=== PATIENT | male | born 1955 | race Caucasian/White ===

== ENCOUNTER → 2017-05-02 | Outpatient (REF) | payer MEDICAID, OTHER ==
[~2017-05-02] MED LIST: ALEVE PO; INTERFERON SQ; NEXI20CA OR; PROZ20CA OR; RIBAVIRIN PO; SYNT50TA OR; TRAMPOW3 XX; TRAZ100T OR
[2017-05-03 14:06] LABS: CALCIUM OXALATE CRYSTALS SMALL
== END ==
LOC: M LAB REF 13:25
PROVIDERS: ATTEND Family Medicine Addiction Medicine
DX: R10.31 Right lower quadrant pain (principal)

== ENCOUNTER → 2017-12-13 | Outpatient (REF) | payer OTHER, MEDICAID ==
[2017-12-13 14:28] LABS: ALBUMIN/GLOBULIN RATIO 1.14 (1.00-1.93); ALKALINE PHOSPHATASE 76 U/L (45-117); ALT/SGPT 20 U/L (12-78); ANION GAP 8 MEQ/L (8-16); AST/SGOT 17 U/L (7-37); BILIRUBIN,TOTAL 0.5 MG/DL (0.2-1.0); BLOOD UREA NITROGEN 19 MG/DL (7-18); CARBON DIOXIDE LEVEL 31 MEQ/L (21-32); CHLORIDE LEVEL 103 MEQ/L (98-107); CHOLESTEROL LEVEL 148 MG/DL (<200); CREATININE FOR GFR 0.96 MG/DL (0.70-1.30); GLOMERULAR FILTRATION RATE > 60.0 (>49); GLUCOSE, FASTING 100 MG/DL (70-100); HDL CHOLESTEROL 54 MG/DL (>40); LDL CHOLESTEROL 74.8 MG/DL (<100); NON-HDL-C 94 MG/DL; POTASSIUM SERUM 3.8 MEQ/L (3.5-5.1); SODIUM LEVEL 142 MEQ/L (136-145); TOTAL PROTEIN 7.5 GM/DL (6.4-8.2); TRIGLYCERIDES LEVEL 96 MG/DL (<150)
== END ==
LOC: M LAB REF 13:34
DX: I10 Essential (primary) hypertension (principal)

== ENCOUNTER → 2019-02-20 | Outpatient (REF) | payer MEDICAID, OTHER, SELFPAY ==
[2019-02-20 14:01] LABS: ALBUMIN 4.1 GM/DL (3.2-5.2); ALT/SGPT 18 U/L (12-78); BLOOD UREA NITROGEN 11 MG/DL (7-18); CALCIUM LEVEL 9.1 MG/DL (8.8-10.2); CARBON DIOXIDE LEVEL 27 MEQ/L (21-32); CHLORIDE LEVEL 104 MEQ/L (98-107); CHOLESTEROL LEVEL 142 MG/DL (<200); CHOLESTEROL RISK RATIO 2.535 (<5); CREATININE FOR GFR 0.94 MG/DL (0.70-1.30); GLOMERULAR FILTRATION RATE > 60.0 (>49); GLUCOSE, FASTING 75 MG/DL (70-100); HDL CHOLESTEROL 56 MG/DL (>40); LDL CHOLESTEROL 76 MG/DL (<100); NON-HDL-C 86 MG/DL; POTASSIUM SERUM 4.3 MEQ/L (3.5-5.1); SODIUM LEVEL 137 MEQ/L (136-145); TRIGLYCERIDES LEVEL 48 MG/DL (<150)
== END ==
LOC: M LAB REF 12:29
PROVIDERS: ATTEND Family Medicine Addiction Medicine
DX: I10 Essential (primary) hypertension (principal)

== ENCOUNTER → 2020-03-04 | Outpatient (REF) | payer OTHER ==
[2020-03-04 14:16] LABS: BASO % 0.5 % (0.0-1.0); EOS # 0.2 10^3/uL (0.0-0.5); EOS % 3.4 % (0.0-3.0); HEMATOCRIT 46.5 % (42.0-52.0); HEMOGLOBIN 15.4 g/dl (13.5-17.5); LYMPH # 1.1 10^3/uL (1.5-5.0); LYMPH % 18.6 % (24.0-44.0); MEAN CORPUSCULAR HEMOGLOBIN 29.8 pg (27.0-33.0); MEAN CORPUSCULAR HGB CONC 33.1 g/dl (32.0-36.5); MEAN CORPUSCULAR VOLUME 90.1 fl (80.0-96.0); MONO # 0.6 10^3/uL (0.0-0.8); MONO % 9.9 % (0.0-5.0); NEUTROPHILS % 67.3 % (36.0-66.0); PLATELET COUNT, AUTOMATED 203 10^3/uL (150-450); RED BLOOD COUNT 5.16 10^6/uL (4.30-6.10); WHITE BLOOD COUNT 5.9 10^3/uL (4.0-10.0)
[2020-03-04 14:33] LABS: ALBUMIN 4.3 GM/DL (3.2-5.2); ALT/SGPT 23 U/L (12-78); BILIRUBIN,TOTAL 0.6 MG/DL (0.2-1.0); BLOOD UREA NITROGEN 21 MG/DL (7-18); CALCIUM LEVEL 9.6 MG/DL (8.8-10.2); CARBON DIOXIDE LEVEL 31 MEQ/L (21-32); CHLORIDE LEVEL 99 MEQ/L (98-107); CHOLESTEROL LEVEL 159 MG/DL (<200); CHOLESTEROL RISK RATIO 2.944 (<5); CREATININE FOR GFR 0.97 MG/DL (0.70-1.30); FREE T4 1.21 NG/DL (0.76-1.46); GLOMERULAR FILTRATION RATE > 60.0 (>49); GLUCOSE, FASTING 97 MG/DL (70-100); HDL CHOLESTEROL 54 MG/DL (>40); LDL CHOLESTEROL 90 MG/DL (<100); NON-HDL-C 105 MG/DL; POTASSIUM SERUM 3.8 MEQ/L (3.5-5.1); SODIUM LEVEL 136 MEQ/L (136-145); TOTAL 25(OH) VITAMIN D 20.1 NG/ML (30.0-100.0); TRIGLYCERIDES LEVEL 73 MG/DL (<150)
[2020-03-04 14:46] LABS: HEMOGLOBIN A1c 5.6 %
== END ==
LOC: M LAB REF 12:27
PROVIDERS: ATTEND Nurse Practitioner Family
DX: M25.511 Pain in right shoulder (principal); G47.09 Other insomnia; I10 Essential (primary) hypertension; F32.9 Major depressive disorder, single episode, unspecified; K21.9 Gastro-esophageal reflux disease without esophagitis; Z13.9 Encounter for screening, unspecified
CPT/HCPCS: 80053; 80061; 82306; 83036; 84439; 84443; 85025; G0103

== ENCOUNTER 2021-12-28 12:16 | Emergency (ER) | payer OTHER ==
[~2021-12-28] VITALS: Ht 182.9 cm; Wt 81.8 kg
[2021-12-28 14:59] VITALS: BP 119/69
== END 2021-12-28 15:08 | disposition home or self-care (01) ==
LOC: M ED 12:16
DX: S82.001A Unspecified fracture of right patella, initial encounter for closed fracture (principal); S46.911A Strain of unspecified muscle, fascia and tendon at shoulder and upper arm level, right arm, initial encounter; W18.39XA Other fall on same level, initial encounter; Y92.018 Other place in single-family (private) house as the place of occurrence of the external cause; I10 Essential (primary) hypertension; Z79.899 Other long term (current) drug therapy

== ENCOUNTER → 2022-01-01 | Outpatient (CLI) | payer MEDICARE ==
[~2022-01-01] MED LIST changes: +CLEO300C2 PO; +GABA-282 PO; +HYDR12CA PO; +IBUP80TA PO; +PANT40TA29 PO; +ZOLP5TAB PO
== END ==
LOC: M SOG 13:13 → MERGE 13:13
PROVIDERS: ATTEND Orthopaedic Surgery
DX: S82.002A Unspecified fracture of left patella, initial encounter for closed fracture (principal); X58.XXXA Exposure to other specified factors, initial encounter; Y92.89 Other specified places as the place of occurrence of the external cause; Y93.89 Activity, other specified; Y99.8 Other external cause status

== ENCOUNTER → 2022-01-14 | Outpatient (CLI) | payer OTHER ==
[~2022-01-14] MED LIST changes: -CLEO300C2 PO; -GABA-282 PO; -HYDR12CA PO; -IBUP80TA PO; -PANT40TA29 PO; -ZOLP5TAB PO
== END ==
LOC: M SOG 14:46
PROVIDERS: ATTEND Physician Assistant
DX: M19.012 Primary osteoarthritis, left shoulder (principal); M85.812 Other specified disorders of bone density and structure, left shoulder

== ENCOUNTER 2022-01-17 09:13 | Observation (INO) | payer MEDICARE ==
[~2022-01-17] VITALS: Ht 182.9 cm; Wt 76.0 kg
[2022-01-17 10:12] LABS: BASO % 0.2 % (0.0-1.0); EOS % 0.1 % (0.0-3.0); HEMATOCRIT 37.3 % (42.0-52.0); HEMOGLOBIN 12.2 g/dl (13.5-17.5); LYMPH # 1.3 10^3/uL (1.5-5.0); LYMPH % 16.7 % (24.0-44.0); MEAN CORPUSCULAR HEMOGLOBIN 27.5 pg (27.0-33.0); MEAN CORPUSCULAR HGB CONC 32.7 g/dl (32.0-36.5); MONO # 0.8 10^3/uL (0.0-0.8); MONO % 10.4 % (2.0-8.0); NEUTROPHILS # 5.8 10^3/uL (1.5-8.5); NEUTROPHILS % 71.9 % (36.0-66.0); PLATELET COUNT, AUTOMATED 180 10^3/uL (150-450); RED BLOOD COUNT 4.44 10^6/uL (4.30-6.10)
[2022-01-17 10:26] LABS: INR 1.03; PROTHROMBIN TIME 13.9 SECONDS (12.7-14.5)
[2022-01-17 10:27] LABS: PARTIAL THROMBOPLASTIN TIME 29.2 SECONDS (25.9-37.0)
[2022-01-17] MEDS ORDERED: HYDROMORPHONE HCL 0.5 MG/ 0.5 ML SYRINGE (J1170 PER 1) IV PRN (10:35)
[2022-01-17 10:42] LABS: MB/CK RELATIVE INDEX 5.66 (< OR =4)
[2022-01-17] MEDS ORDERED: LIDOCAINE W/EPINEPHRINE 1% 20ML VIAL As Ordered ONE (10:42)
[2022-01-17 10:50] LABS: RSV AMPLIFICATION NEGATIVE (NEGATIVE)
[2022-01-17 10:51] LABS: BLOOD UREA NITROGEN 34 MG/DL (7-18); CALCIUM LEVEL 8.8 MG/DL (8.8-10.2); CARBON DIOXIDE LEVEL 29 MEQ/L (21-32); CHLORIDE LEVEL 108 MEQ/L (98-107); CREATININE FOR GFR 1.07 MG/DL (0.70-1.30); FREE T4 1.15 NG/DL (0.76-1.46); GLOMERULAR FILTRATION RATE > 60.0 (>49); GLUCOSE, FASTING 102 MG/DL (70-100); MAGNESIUM LEVEL 2.2 MG/DL (1.8-2.4); POTASSIUM SERUM 4.1 MEQ/L (3.5-5.1); SODIUM LEVEL 139 MEQ/L (136-145)
[2022-01-17 10:52] LABS: ETHYL ALCOHOL (ETHANOL) < 0.003 % (0.000-0.010)
[2022-01-17] MEDS ORDERED: LIDOCAINE W/EPINEPHRINE 1% 20ML VIAL SC ONE (10:55)
[2022-01-17] MEDS ORDERED: DERMABOND TOPICAL SKIN ADHESIVE TOP ONE (11:50)
[2022-01-17] MEDS ORDERED: BOOSTRIX/ADACEL VACCINE (DIPHTH/PERTUSS/ACELL/TETANUS) 0.5ML SYR IM ONE (12:10)
[2022-01-17] MEDS ORDERED: NS 1,000 ML IV ONE ×2 (12:15→14:10)
[2022-01-17] MEDS ORDERED: ACETAMINOPHEN TAB 650MG DOSE (2X325MG) PO PRN (13:50)
[2022-01-17] MEDS ORDERED: ZOLP5TAB PO (14:09)
[2022-01-17] MEDS ORDERED: HYDR12CA PO (14:09)
[2022-01-17] MEDS ORDERED: IBUP80TA PO (14:09)
[2022-01-17] MEDS ORDERED: GABA-282 PO (14:09)
[2022-01-17] MEDS ORDERED: PANT40TA29 PO (14:09)
[2022-01-17] MEDS ORDERED: HOME MED LIST COMPLETE! XX SCH (14:10)
[2022-01-17] MEDS ORDERED: RAMELTEON 8 MG TAB (ROZEREM) PO PRN (14:15)
[2022-01-17 15:31] VITALS: BP 138/77
[2022-01-17] MEDS: IBUPROFEN 800 MG TAB PO PRN (16:07)
[2022-01-17] MEDS: GABAPENTIN 300 MG CAP PO SCH (16:40)
[2022-01-17] MEDS: PANTOPRAZOLE 40MG TAB (PROTONIX) PO SCH (16:41)
[2022-01-17 18:00] VITALS: BP 109/65
[2022-01-18 06:00] VITALS: BP 156/80
[2022-01-18] MEDS: IBUPROFEN 800 MG TAB PO PRN (08:19)
[2022-01-18] MEDS: PANTOPRAZOLE 40MG TAB (PROTONIX) PO SCH (08:19)
[2022-01-18] MEDS: GABAPENTIN 300 MG CAP PO SCH (08:19)
[2022-01-18] MEDS ORDERED: PREVNAR 13 VACCINE SYRINGE IM ONE (09:00)
[2022-01-18] MEDS ORDERED: FLUBLOK(EGG FREE)(QUAD)INFLUENZA VACC 0.5ML SYRINGE 18YRS & OLDER IM ONE (09:00)
== END 2022-01-18 16:40 | disposition home or self-care (01) ==
LOC: M ED 09:13 → M ED INP 13:49 → M MSPAV 15:34
PROVIDERS: ADMIT Internal Medicine; ATTEND Internal Medicine
DX: R55 Syncope and collapse (principal); S01.81XA Laceration without foreign body of other part of head, initial encounter; W18.11XA Fall from or off toilet without subsequent striking against object, initial encounter; Y92.091 Bathroom in other non-institutional residence as the place of occurrence of the external cause; I10 Essential (primary) hypertension; E03.9 Hypothyroidism, unspecified; K21.9 Gastro-esophageal reflux disease without esophagitis; M19.90 Unspecified osteoarthritis, unspecified site; G47.00 Insomnia, unspecified; R00.1 Bradycardia, unspecified; F32.9 Major depressive disorder, single episode, unspecified; Z79.899 Other long term (current) drug therapy; Z87.891 Personal history of nicotine dependence
CPT/HCPCS: 12005; 70450; 71045; 72125; 80048; 82077; 82550; 82553; 83605; 83735; 84439; 84443; 84484; 85025; 85610; 85730; 86850; 86900; 86901; 87631; 90471; 90670; 90682; 90715; 93005; 93041; 93306; 94760; 96361; 96374; 99285; G0008; G0009; G0378; J1170

== ENCOUNTER 2022-02-08 07:50 | Emergency (ER) | payer MEDICARE ==
[~2022-02-08] VITALS: Ht 172.7 cm; Wt 75.9 kg
[~2022-02-08 07:50] MED LIST changes: +GABA-282 PO; +HYDR12CA PO; +IBUP80TA PO; +PANT40TA29 PO; +ZOLP5TAB PO
[2022-02-08 09:20] LABS: BASO % 0.2 % (0.0-1.0); EOS # 0.1 10^3/uL (0.0-0.5); EOS % 0.6 % (0.0-3.0); HEMATOCRIT 34.1 % (42.0-52.0); HEMOGLOBIN 10.9 g/dl (13.5-17.5); LYMPH # 1.1 10^3/uL (1.5-5.0); LYMPH % 13.2 % (24.0-44.0); MEAN CORPUSCULAR VOLUME 81.4 fl (80.0-96.0); MONO % 11.3 % (2.0-8.0); NEUTROPHILS # 6.2 10^3/uL (1.5-8.5); NEUTROPHILS % 74.2 % (36.0-66.0); PLATELET COUNT, AUTOMATED 190 10^3/uL (150-450); RED BLOOD COUNT 4.19 10^6/uL (4.30-6.10); WHITE BLOOD COUNT 8.4 10^3/uL (4.0-10.0)
[2022-02-08 09:49] LABS: BLOOD UREA NITROGEN 16 MG/DL (7-18); C REACTIVE PROTEIN QUANTITATIV 4.49 MG/DL (0.00-0.30); CARBON DIOXIDE LEVEL 25 MEQ/L (21-32); CHLORIDE LEVEL 106 MEQ/L (98-107); CREATININE FOR GFR 0.83 MG/DL (0.70-1.30); ERYTHROCYTE SEDIMENTATION RATE 41 mm/hr (0-20); GLOMERULAR FILTRATION RATE > 60.0 (>49); GLUCOSE, FASTING 107 MG/DL (70-100); SODIUM LEVEL 138 MEQ/L (136-145)
[2022-02-08] MEDS ORDERED: LIDOCAINE 1% MDV 20ML VIAL SC ONE (10:30)
[2022-02-08] MEDS ORDERED: CLINDAMYCIN 900 MG in IV 1 EA IV ONE (11:20)
[2022-02-08] MEDS ORDERED: CLEO300C2 PO (13:05)
[2022-02-08 13:45] VITALS: BP 145/73
== END 2022-02-08 13:46 | disposition home or self-care (01) ==
LOC: M ED 07:50
DX: Z48.02 Encounter for removal of sutures (principal); L02.414 Cutaneous abscess of left upper limb; L08.9 Local infection of the skin and subcutaneous tissue, unspecified; F15.10 Other stimulant abuse, uncomplicated

== ENCOUNTER → 2022-03-18 | Outpatient (CLI) | payer MEDICARE ==
[~2022-03-18] MED LIST changes: +CLEO300C2 PO
== END ==
LOC: M SOG 13:10
PROVIDERS: ATTEND Orthopaedic Surgery
DX: M17.11 Unilateral primary osteoarthritis, right knee (principal)

== ENCOUNTER → 2023-03-31 | Outpatient (REF) | payer MEDICARE, OTHER | LOC: M SFHCDERM 17:32 | PROVIDERS: ATTEND Nurse Practitioner Family | DX: C44.529 Squamous cell carcinoma of skin of other part of trunk (principal) ==

== ENCOUNTER 2024-02-23 13:55 | Emergency (ER) | payer MEDICARE, OTHER ==
[~2024-02-23] VITALS: Ht 182.9 cm; Wt 74.8 kg
[2024-02-23 13:56] VITALS: BP 164/78; TEMP 97.5; O2SAT 99
[2024-02-23] MEDS: DERMABOND TOPICAL SKIN ADHESIVE TOP ONE (16:48)
== END 2024-02-23 17:24 | disposition home or self-care (01) ==
LOC: M ED 13:55
DX: S00.81XA Abrasion of other part of head, initial encounter (principal); S20.211A Contusion of right front wall of thorax, initial encounter; S01.312A Laceration without foreign body of left ear, initial encounter; Y04.8XXA Assault by other bodily force, initial encounter; Y92.9 Unspecified place or not applicable; Y93.9 Activity, unspecified; Y99.9 Unspecified external cause status

== ENCOUNTER → 2025-04-25 | Outpatient (REF) | payer MEDICARE ==
[~2025-04-25] MED LIST changes: +GABA-1172 PO; -GABA-282 PO
== END ==
LOC: M LAB REF 18:00
PROVIDERS: ATTEND Family Medicine Addiction Medicine
DX: R79.89 Other specified abnormal findings of blood chemistry (principal)

== ENCOUNTER 2025-06-05 17:13 | Emergency (ER) | payer MEDICARE ==
[~2025-06-05] VITALS: Ht 182.9 cm; Wt 81.8 kg
[~2025-06-05 17:13] MED LIST changes: +HYDR12.510 PO; -HYDR12CA PO
[2025-06-05] MEDS ORDERED: NAPR-885 PO (18:14)
[2025-06-05] MEDS ORDERED: LEVO100T5 PO (18:14)
[2025-06-05] MEDS ORDERED: OMEP-173 PO (18:14)
[2025-06-05] MEDS ORDERED: HOME MED LIST COMPLETE! XX SCH (18:15)
[2025-06-05] MEDS ORDERED: ISOVUE-370 76% 100 ML VIAL As Ordered ONE (18:45)
[2025-06-05 18:53] LABS: BASO # 0.0 10^3/uL (0.0-0.2); BASO % 0.2 % (0.0-1.0); EOS # 0.1 10^3/uL (0.0-0.5); EOS % 1.2 % (0.0-3.0); LYMPH # 0.5 10^3/uL (1.5-5.0); LYMPH % 10.2 % (24.0-44.0); MONO # 0.4 10^3/uL (0.0-0.8); MONO % 8.8 % (2.0-8.0); NEUTROPHILS # 3.9 10^3/uL (1.5-8.5); NEUTROPHILS % 79.4 % (36.0-66.0)
[2025-06-05 19:07] LABS: INR 1.12
[2025-06-05 19:20] LABS: PLATELET COUNT, AUTOMATED 83 10^3/uL (150-450)
[2025-06-05 19:59] LABS: KETONE, URINE AUTO RFX NEGATIVE (NEGATIVE); LEUKOCYTE ESTERASE UR AUTO RFX NEGATIVE (NEGATIVE); MUCUS, URINE RFX SMALL (NEGATIVE); NITRITE, URINE AUTO RFX NEGATIVE (NEGATIVE); RBC, URINE AUTO RFX 0 /HPF (0-3); SQUAM EPITHELIAL CELL UR AURFX 0 /HPF (0-6); WBC, URINE AUTO RFX 2 /HPF (0-3)
[2025-06-05 20:07] LABS: CK-MB VALUE MASS 4.8 NG/ML (<3.6)
[2025-06-05 20:08] LABS: CPK CREATINE PHOSPHOKINASE 130.0 U/L (46-171); ETHYL ALCOHOL (ETHANOL) < 0.003 % (0.000-0.010); MB/CK RELATIVE INDEX 3.69 (< OR =4)
[2025-06-05 20:10] LABS: ALT/SGPT 95 U/L (7.0-40); AST/SGOT 172 U/L (<34); CALCIUM LEVEL 9.3 MG/DL (8.3-10.6); CARBON DIOXIDE LEVEL 30 MMOL/L (20-31); CHLORIDE LEVEL 102 MMOL/L (98-107); CREATININE FOR GFR 0.71 MG/DL (0.70-1.30); GLOMERULAR FILTRATION RATE > 90.0 (>42); POTASSIUM SERUM 4.0 MMOL/L (3.5-5.1); SODIUM LEVEL 141 MMOL/L (136-145)
[2025-06-05 20:12] LABS: FREE T4 1.41 NG/DL (0.89-1.76)
[2025-06-05 20:18] LABS: AMPHETAMINES LEVEL URINE NEGATIVE (NEGATIVE); BARBITURATES URINE NEGATIVE (NEGATIVE); BENZODIAZEPINES URINE NEGATIVE (NEGATIVE); COCAINE METABOLITE URINE NEGATIVE (NEGATIVE); METHADONE URINE NEGATIVE (NEGATIVE); OPIATES URINE NEGATIVE (NEGATIVE); PHENCYCLIDINE URINE NEGATIVE (NEGATIVE)
[2025-06-05 20:22] LABS: CANNABINOIDS URINE POSITIVE (NEGATIVE)
[2025-06-05 21:00] VITALS: TEMP 98.1
[2025-06-05 21:31] LABS: CK-MB VALUE MASS 4.2 NG/ML (<3.6)
[2025-06-05 21:33] LABS: CPK CREATINE PHOSPHOKINASE 111.0 U/L (46-171); MB/CK RELATIVE INDEX 3.78 (< OR =4)
[2025-06-05] MEDS: CLOPIDOGREL 75 MG TAB PO ONE (21:48)
[2025-06-05] MEDS: ATORVASTATIN 20 MG TAB PO ONE (21:49)
[2025-06-05] MEDS: ASPIRIN 325 MG TAB PO ONE (21:49)
[2025-06-05 21:58] VITALS: BP 135/74; O2SAT 95
== END 2025-06-05 21:58 | disposition left against medical advice (07) ==
LOC: M ED 17:13
DX: I63.9 Cerebral infarction, unspecified (principal); I65.29 Occlusion and stenosis of unspecified carotid artery; Z53.9 Procedure and treatment not carried out, unspecified reason; M54.9 Dorsalgia, unspecified; G47.00 Insomnia, unspecified; K21.9 Gastro-esophageal reflux disease without esophagitis; Z86.19 Personal history of other infectious and parasitic diseases; F19.10 Other psychoactive substance abuse, uncomplicated; F32.A Depression, unspecified; F17.200 Nicotine dependence, unspecified, uncomplicated
CPT/HCPCS: 70450; 70496; 70498; 70551; 71045; 80047; 80048; 80076; 80307; 81001; 82077; 82140; 82550; 82553; 84439; 84443; 84484; 85025; 85049; 85055; 85610; 85730; 87486; 87581; 87633; 87798; 93005; 93041; 94760; 99285; Q9967

== ENCOUNTER 2025-08-21 15:47 | Inpatient (IN) | payer MEDICARE, MEDICAID ==
[~2025-08-21] VITALS: Ht 172.7 cm; Wt 71.8 kg
[~2025-08-21 15:47] MED LIST changes: +LEVO100T5 PO; +NAPR-885 PO; +OMEP-173 PO; -ZOLP5TAB PO; +ZOLP5TAB9 PO
[2025-08-21] MEDS ORDERED: ISOVUE-370 76% 100 ML VIAL As Ordered ONE (16:35)
[2025-08-21 16:50] LABS: BASO # 0.0 10^3/uL (0.0-0.2); BASO % 0.2 % (0.0-1.0); EOS # 0.0 10^3/uL (0.0-0.5); EOS % 0.4 % (0.0-3.0); LYMPH # 0.3 10^3/uL (1.5-5.0); LYMPH % 5.0 % (24.0-44.0); MONO # 0.5 10^3/uL (0.0-0.8); MONO % 9.0 % (2.0-8.0); NEUTROPHILS # 4.7 10^3/uL (1.5-8.5); NEUTROPHILS % 85.0 % (36.0-66.0)
[2025-08-21 16:51] LABS: PLATELET COUNT, AUTOMATED 81 10^3/uL (150-450)
[2025-08-21 17:12] LABS: CALCIUM LEVEL 11.0 MG/DL (8.3-10.6); CARBON DIOXIDE LEVEL 30 MMOL/L (20-31); CHLORIDE LEVEL 103 MMOL/L (98-107); CREATININE FOR GFR 0.82 MG/DL (0.70-1.30); GLOMERULAR FILTRATION RATE > 90.0 (>42); POTASSIUM SERUM 3.7 MMOL/L (3.5-5.1); SODIUM LEVEL 141 MMOL/L (136-145)
[2025-08-21 17:36] LABS: INR 1.17
[2025-08-21 17:37] LABS: ALT/SGPT 56 U/L (7.0-40); AST/SGOT 162 U/L (<34)
[2025-08-21] MEDS: IPRATROPIUM 0.5 MG/ALBUTEROL 2.5 MG INH SOL UD 3 ML NEB ONE (18:14)
[2025-08-21 19:15] VITALS: BP 120/69; O2SAT 94
[2025-08-21 19:18] LABS: AMPHETAMINES LEVEL URINE NEGATIVE (NEGATIVE); BARBITURATES URINE NEGATIVE (NEGATIVE)
[2025-08-21 19:19] LABS: BENZODIAZEPINES URINE NEGATIVE (NEGATIVE); COCAINE METABOLITE URINE NEGATIVE (NEGATIVE); METHADONE URINE NEGATIVE (NEGATIVE); OPIATES URINE NEGATIVE (NEGATIVE); PHENCYCLIDINE URINE NEGATIVE (NEGATIVE)
[2025-08-21 19:20] LABS: CANNABINOIDS URINE POSITIVE (NEGATIVE)
[2025-08-21 20:13] VITALS: BP 117/63; O2SAT 94
[2025-08-21] MEDS: ASPIRIN 81 MG CHEWABLE TABLET PO ONE (20:16)
[2025-08-21] MEDS: CLOPIDOGREL 75 MG TAB PO ONE (20:16)
[2025-08-21] MEDS ORDERED: ATOR80TA59 PO (20:31)
[2025-08-21] MEDS ORDERED: ASPI-226 PO (20:31)
[2025-08-21] MEDS ORDERED: CLOP75TA2 PO (20:31)
[2025-08-21] MEDS ORDERED: HOME MED LIST COMPLETE! XX SCH (20:35)
[2025-08-21 22:02] VITALS: BP 110/66; O2SAT 96
[2025-08-22] VITALS (7 sets, daily range): BP systolic 114–129; BP diastolic 66–79; TEMP 97.7–98.2; O2SAT 92–96
[2025-08-22] MEDS: LEVOTHYROXINE 100 MCG TABLET (0.1 MG) PO SCH (05:02)
[2025-08-22 06:49] LABS: ESTIMATED AVERAGE GLUCOSE 100.0 MG/DL (60-110)
[2025-08-22 06:54] LABS: ALT/SGPT 47 U/L (7.0-40); AST/SGOT 137 U/L (<34); CALCIUM LEVEL 10.7 MG/DL (8.3-10.6); CARBON DIOXIDE LEVEL 30 MMOL/L (20-31); CHLORIDE LEVEL 106 MMOL/L (98-107); CHOLESTEROL LEVEL 97.0 MG/DL (<200); CHOLESTEROL RISK RATIO 3.11 (<5); CREATININE FOR GFR 0.70 MG/DL (0.70-1.30); GLOMERULAR FILTRATION RATE > 90.0 (>42); LDL CHOLESTEROL 55.1 MG/DL (<100); NON-HDL-C 65.9 MG/DL; POTASSIUM SERUM 4.1 MMOL/L (3.5-5.1); SODIUM LEVEL 143 MMOL/L (136-145); TRIGLYCERIDES LEVEL 54.0 MG/DL (<150)
[2025-08-22 08:44] LABS: BASO # 0.0 10^3/uL (0.0-0.2); BASO % 0.2 % (0.0-1.0); EOS # 0.0 10^3/uL (0.0-0.5); EOS % 0.2 % (0.0-3.0); LYMPH # 0.4 10^3/uL (1.5-5.0); LYMPH % 7.0 % (24.0-44.0); MONO # 0.5 10^3/uL (0.0-0.8); MONO % 7.8 % (2.0-8.0); NEUTROPHILS # 5.3 10^3/uL (1.5-8.5); NEUTROPHILS % 84.5 % (36.0-66.0); PLATELET COUNT, AUTOMATED 107 10^3/uL (150-450)
[2025-08-22] MEDS ORDERED: ENOXAPARIN 40 MG/0.4 ML SYRINGE (J1650 PER 10MG) SC SCH (09:00)
[2025-08-22] MEDS ORDERED: PANTOPRAZOLE 40MG VIAL IV SCH (09:00)
[2025-08-22 09:08] LABS: MAGNESIUM LEVEL 1.7 MG/DL (1.8-2.4); PHOSPHORUS LEVEL 2.0 MG/DL (2.4-5.1)
[2025-08-22 09:10] LABS: PTH INTACT 8.3 PG/ML (18.5-88.0)
[2025-08-22 09:13] LABS: FREE T4 1.13 NG/DL (0.89-1.76)
[2025-08-22 09:14] LABS: TOTAL 25(OH) VITAMIN D 43.0 NG/ML (20.0-100.0)
[2025-08-22] MEDS: PANTOPRAZOLE 40MG VIAL IV SCH (10:18)
[2025-08-22] MEDS: ASPIRIN 81 MG ENTERIC TABLET PO SCH (10:20)
[2025-08-22] MEDS: CLOPIDOGREL 75 MG TAB PO SCH (10:20)
[2025-08-22] MEDS: LACTULOSE 20 GM/30 ML SYRUP UDC PO SCH (10:20)
[2025-08-22] MEDS: ATORVASTATIN 20 MG TAB PO SCH (10:21)
[2025-08-22 11:32] LABS: HEPATITIS C VIRUS ABY INDEX > 11.00 INDEX (<0.8)
[2025-08-22] MEDS: MAG SULF 1GM/100ML (MAG RUN) 1 GM in IV 1 EA IV ONE (12:22)
[2025-08-22] MEDS: LR 1,000 ML IV SCH (12:22)
[2025-08-22] MEDS: cefTRIAXone SOD 2 GM in DEXTROSE 5% (D5W) ADV/MINI-BAG 50 ML IV SCH (13:14)
[2025-08-23] VITALS (7 sets, daily range): BP systolic 119–148; BP diastolic 77–87; TEMP 97.7–98.6; O2SAT 90–96
[2025-08-23 07:57] LABS: BASO # 0.0 10^3/uL (0.0-0.2); BASO % 0.2 % (0.0-1.0); EOS # 0.0 10^3/uL (0.0-0.5); EOS % 0.2 % (0.0-3.0); LYMPH # 0.4 10^3/uL (1.5-5.0); LYMPH % 9.2 % (24.0-44.0); MONO # 0.4 10^3/uL (0.0-0.8); MONO % 9.5 % (2.0-8.0); NEUTROPHILS # 3.4 10^3/uL (1.5-8.5); NEUTROPHILS % 80.4 % (36.0-66.0)
[2025-08-23 08:22] LABS: ALT/SGPT 52 U/L (7.0-40); AST/SGOT 194 U/L (<34); CALCIUM LEVEL 9.9 MG/DL (8.3-10.6); CARBON DIOXIDE LEVEL 29 MMOL/L (20-31); CHLORIDE LEVEL 107 MMOL/L (98-107); CREATININE FOR GFR 0.61 MG/DL (0.70-1.30); GLOMERULAR FILTRATION RATE > 90.0 (>42); MAGNESIUM LEVEL 1.8 MG/DL (1.8-2.4); PHOSPHORUS LEVEL 2.3 MG/DL (2.4-5.1); POTASSIUM SERUM 3.3 MMOL/L (3.5-5.1); SODIUM LEVEL 144 MMOL/L (136-145)
[2025-08-23 08:48] LABS: PLATELET COUNT, AUTOMATED 78 10^3/uL (150-450)
[2025-08-23] MEDS ORDERED: KCL 10MEQ/100ML SWI (KRUN) 10 MEQ in IV 1 EA IV SCH (09:00)
[2025-08-23] MEDS: POTASSIUM CHLORIDE 10MEQ SR TABLET PO ONE (11:52)
[2025-08-23 13:39] LABS: BASO # 0.0 10^3/uL (0.0-0.2); BASO % 0.2 % (0.0-1.0); EOS # 0.0 10^3/uL (0.0-0.5); EOS % 0.0 % (0.0-3.0); LYMPH # 0.4 10^3/uL (1.5-5.0); LYMPH % 6.3 % (24.0-44.0); MONO # 0.5 10^3/uL (0.0-0.8); MONO % 9.2 % (2.0-8.0); NEUTROPHILS # 4.8 10^3/uL (1.5-8.5); NEUTROPHILS % 83.9 % (36.0-66.0)
[2025-08-23 13:47] LABS: PLATELET COUNT, AUTOMATED 94 10^3/uL (150-450)
[2025-08-23] MEDS: SUCRALFATE SUSP 1GM/10ML UD PO SCH (14:02)
[2025-08-23 19:25] LABS: HIV 1&2 SCREEN NEGATIVE (NEGATIVE)
[2025-08-24] VITALS: BP 117/76; TEMP 97.7; O2SAT 90
[2025-08-24 04:00] VITALS: BP 144/82; TEMP 98.1; O2SAT 95
[2025-08-24 06:25] LABS: BASO # 0.0 10^3/uL (0.0-0.2); BASO % 0.2 % (0.0-1.0); EOS # 0.0 10^3/uL (0.0-0.5); EOS % 0.7 % (0.0-3.0); LYMPH # 0.3 10^3/uL (1.5-5.0); LYMPH % 7.7 % (24.0-44.0); MONO # 0.4 10^3/uL (0.0-0.8); MONO % 8.3 % (2.0-8.0); NEUTROPHILS # 3.7 10^3/uL (1.5-8.5); NEUTROPHILS % 82.9 % (36.0-66.0)
[2025-08-24 06:29] LABS: PLATELET COUNT, AUTOMATED 79 10^3/uL (150-450)
[2025-08-24 06:59] LABS: ALT/SGPT 58 U/L (7.0-40); AST/SGOT 254 U/L (<34); CALCIUM LEVEL 10.6 MG/DL (8.3-10.6); CARBON DIOXIDE LEVEL 29 MMOL/L (20-31); CHLORIDE LEVEL 108 MMOL/L (98-107); CREATININE FOR GFR 0.61 MG/DL (0.70-1.30); GLOMERULAR FILTRATION RATE > 90.0 (>42); MAGNESIUM LEVEL 1.8 MG/DL (1.8-2.4); POTASSIUM SERUM 3.4 MMOL/L (3.5-5.1); SODIUM LEVEL 145 MMOL/L (136-145)
[2025-08-24 08:00] VITALS: BP 144/73; TEMP 98.4; O2SAT 96
[2025-08-24] MEDS: POTASSIUM CHLORIDE 10MEQ SR TABLET PO ONE (09:03)
[2025-08-24 12:00] VITALS: BP 140/71; TEMP 98.8; O2SAT 94
[2025-08-24 16:00] VITALS: BP 139/70; TEMP 98.8; O2SAT 94
[2025-08-24 20:00] VITALS: BP 153/85; TEMP 97.9; O2SAT 93
[2025-08-25] VITALS: BP 141/81; TEMP 98.1; O2SAT 94
[2025-08-25 01:03] LABS: HCV RNA log10 6.32 Log IU/mL (NOT DETECTED)
[2025-08-25 04:00] VITALS: BP 138/77; TEMP 98.1; O2SAT 95
[2025-08-25 06:26] LABS: BASO # 0.0 10^3/uL (0.0-0.2); BASO % 0.3 % (0.0-1.0); EOS # 0.0 10^3/uL (0.0-0.5); EOS % 0.8 % (0.0-3.0); LYMPH # 0.3 10^3/uL (1.5-5.0); LYMPH % 7.9 % (24.0-44.0); MONO # 0.3 10^3/uL (0.0-0.8); MONO % 9.3 % (2.0-8.0); NEUTROPHILS # 2.9 10^3/uL (1.5-8.5); NEUTROPHILS % 81.1 % (36.0-66.0)
[2025-08-25 06:31] LABS: PLATELET COUNT, AUTOMATED 68 10^3/uL (150-450)
[2025-08-25 06:48] LABS: ALT/SGPT 51 U/L (7.0-40); AST/SGOT 239 U/L (<34); CALCIUM LEVEL 10.0 MG/DL (8.3-10.6); CARBON DIOXIDE LEVEL 29 MMOL/L (20-31); CHLORIDE LEVEL 103 MMOL/L (98-107); CREATININE FOR GFR 0.60 MG/DL (0.70-1.30); GLOMERULAR FILTRATION RATE > 90.0 (>42); MAGNESIUM LEVEL 1.8 MG/DL (1.8-2.4); POTASSIUM SERUM 3.6 MMOL/L (3.5-5.1); SODIUM LEVEL 140 MMOL/L (136-145)
[2025-08-25 08:00] VITALS: BP 136/77; TEMP 97.9; O2SAT 96
[2025-08-25 12:00] VITALS: BP 128/64; TEMP 97.9; O2SAT 97
[2025-08-25 16:00] VITALS: BP 128/71; TEMP 98.1; O2SAT 94
[2025-08-25 20:00] VITALS: BP 145/71; TEMP 97.9; O2SAT 91
[2025-08-26] VITALS: BP 147/70; TEMP 98.1; O2SAT 92
[2025-08-26 04:00] VITALS: BP 127/73; TEMP 98.1; O2SAT 91
[2025-08-26 06:47] LABS: BASO # 0.0 10^3/uL (0.0-0.2); BASO % 0.2 % (0.0-1.0); EOS # 0.0 10^3/uL (0.0-0.5); EOS % 0.7 % (0.0-3.0); LYMPH # 0.3 10^3/uL (1.5-5.0); LYMPH % 6.2 % (24.0-44.0); MONO # 0.4 10^3/uL (0.0-0.8); MONO % 8.8 % (2.0-8.0); NEUTROPHILS # 3.8 10^3/uL (1.5-8.5); NEUTROPHILS % 83.7 % (36.0-66.0); PLATELET COUNT, AUTOMATED 90 10^3/uL (150-450)
[2025-08-26 07:20] LABS: ALT/SGPT 52 U/L (7.0-40); AST/SGOT 218 U/L (<34); CALCIUM LEVEL 10.5 MG/DL (8.3-10.6); CARBON DIOXIDE LEVEL 29 MMOL/L (20-31); CHLORIDE LEVEL 101 MMOL/L (98-107); CREATININE FOR GFR 0.62 MG/DL (0.70-1.30); GLOMERULAR FILTRATION RATE > 90.0 (>42); MAGNESIUM LEVEL 1.7 MG/DL (1.8-2.4); POTASSIUM SERUM 3.6 MMOL/L (3.5-5.1); SODIUM LEVEL 137 MMOL/L (136-145)
[2025-08-26 08:00] VITALS: BP 121/70; TEMP 97.9; O2SAT 89
[2025-08-26] MEDS: POTASSIUM CHLORIDE 10MEQ SR TABLET PO ONE (08:14)
[2025-08-26] MEDS: FUROSEMIDE 20 MG TAB PO ONE (10:27)
[2025-08-26] MEDS: SPIRONOLACTONE 50 MG TAB PO ONE (10:28)
[2025-08-26 12:00] VITALS: BP 142/84; TEMP 97.9; O2SAT 92
[2025-08-26] MEDS: MAGNESIUM OXIDE 400 MG TAB PO ONE (12:56)
[2025-08-26 16:00] VITALS: BP_SYST 128; BP_DIAS 7; BP_DIAS 78; TEMP 97.7; O2SAT 94
[2025-08-26 21:12] VITALS: BP 131/76; TEMP 97.4; O2SAT 92
[2025-08-27] VITALS: BP 151/86; TEMP 97.9; O2SAT 89
[2025-08-27 04:12] VITALS: BP 109/69; TEMP 97.7; O2SAT 92
[2025-08-27 07:03] LABS: BASO # 0.0 10^3/uL (0.0-0.2); BASO % 0.3 % (0.0-1.0); EOS # 0.0 10^3/uL (0.0-0.5); EOS % 1.1 % (0.0-3.0); LYMPH # 0.3 10^3/uL (1.5-5.0); LYMPH % 7.8 % (24.0-44.0); MONO # 0.3 10^3/uL (0.0-0.8); MONO % 9.1 % (2.0-8.0); NEUTROPHILS # 3.0 10^3/uL (1.5-8.5); NEUTROPHILS % 81.4 % (36.0-66.0)
[2025-08-27 07:05] LABS: PLATELET COUNT, AUTOMATED 68 10^3/uL (150-450)
[2025-08-27 07:20] LABS: ALT/SGPT 49 U/L (7.0-40); AST/SGOT 196 U/L (<34); CALCIUM LEVEL 10.7 MG/DL (8.3-10.6); CARBON DIOXIDE LEVEL 30 MMOL/L (20-31); CHLORIDE LEVEL 102 MMOL/L (98-107); CREATININE FOR GFR 0.60 MG/DL (0.70-1.30); GLOMERULAR FILTRATION RATE > 90.0 (>42); MAGNESIUM LEVEL 1.7 MG/DL (1.8-2.4); POTASSIUM SERUM 3.7 MMOL/L (3.5-5.1); SODIUM LEVEL 139 MMOL/L (136-145)
[2025-08-27 08:00] VITALS: BP 118/76; TEMP 97.8; O2SAT 90
[2025-08-27] MEDS: MAG SULF 1GM/100ML (MAG RUN) 1 GM in IV 1 EA IV ONE (08:32)
[2025-08-27] MEDS: FUROSEMIDE 20 MG TAB PO SCH (08:34)
[2025-08-27] MEDS: SPIRONOLACTONE 50 MG TAB PO SCH (08:34)
[2025-08-27 12:00] VITALS: BP 130/74; TEMP 97.7; O2SAT 92
[2025-08-27] MEDS ORDERED: PROHANCE 279.3MG/ML 15ML VIAL As Ordered ONE (19:54)
[2025-08-27 20:06] VITALS: BP 124/60; TEMP 98.7; O2SAT 93
[2025-08-28 04:16] VITALS: BP 116/63; TEMP 98.7; O2SAT 91
[2025-08-28 06:23] LABS: BASO # 0.0 10^3/uL (0.0-0.2); BASO % 0.3 % (0.0-1.0); EOS # 0.0 10^3/uL (0.0-0.5); EOS % 1.0 % (0.0-3.0); LYMPH # 0.3 10^3/uL (1.5-5.0); LYMPH % 7.8 % (24.0-44.0); MONO # 0.4 10^3/uL (0.0-0.8); MONO % 10.7 % (2.0-8.0); NEUTROPHILS # 3.1 10^3/uL (1.5-8.5); NEUTROPHILS % 79.7 % (36.0-66.0)
[2025-08-28 06:34] LABS: PLATELET COUNT, AUTOMATED 73 10^3/uL (150-450)
[2025-08-28 06:53] LABS: ALT/SGPT 56 U/L (7.0-40); AST/SGOT 199 U/L (<34); CALCIUM LEVEL 10.5 MG/DL (8.3-10.6); CARBON DIOXIDE LEVEL 31 MMOL/L (20-31); CHLORIDE LEVEL 100 MMOL/L (98-107); CREATININE FOR GFR 0.61 MG/DL (0.70-1.30); GLOMERULAR FILTRATION RATE > 90.0 (>42); MAGNESIUM LEVEL 1.8 MG/DL (1.8-2.4); POTASSIUM SERUM 3.5 MMOL/L (3.5-5.1); SODIUM LEVEL 138 MMOL/L (136-145)
[2025-08-28 12:00] VITALS: BP 119/56; TEMP 98.3; O2SAT 92
[2025-08-28 20:06] VITALS: BP 126/62; TEMP 99.2; O2SAT 91
[2025-08-29 05:18] VITALS: BP 130/65; TEMP 98.3; O2SAT 92
[2025-08-29 06:51] LABS: BASO # 0.0 10^3/uL (0.0-0.2); BASO % 0.3 % (0.0-1.0); EOS # 0.0 10^3/uL (0.0-0.5); EOS % 0.5 % (0.0-3.0); LYMPH # 0.3 10^3/uL (1.5-5.0); LYMPH % 6.9 % (24.0-44.0); MONO # 0.4 10^3/uL (0.0-0.8); MONO % 9.9 % (2.0-8.0); NEUTROPHILS # 3.2 10^3/uL (1.5-8.5); NEUTROPHILS % 81.9 % (36.0-66.0)
[2025-08-29 06:54] LABS: PLATELET COUNT, AUTOMATED 82 10^3/uL (150-450)
[2025-08-29 07:09] LABS: C REACTIVE PROTEIN QUANTITATIV 2.47 MG/DL (<1.0)
[2025-08-29 07:31] LABS: ALT/SGPT 81 U/L (7.0-40); AST/SGOT 264 U/L (<34); CALCIUM LEVEL 10.8 MG/DL (8.3-10.6); CARBON DIOXIDE LEVEL 32 MMOL/L (20-31); CHLORIDE LEVEL 97 MMOL/L (98-107); CREATININE FOR GFR 0.70 MG/DL (0.70-1.30); GLOMERULAR FILTRATION RATE > 90.0 (>42); MAGNESIUM LEVEL 1.9 MG/DL (1.8-2.4); POTASSIUM SERUM 4.0 MMOL/L (3.5-5.1); SODIUM LEVEL 135 MMOL/L (136-145)
[2025-08-29 12:00] VITALS: BP 142/71; TEMP 98; O2SAT 97
[2025-08-29 13:58] LABS: APPEARANCE, BODY FLUID CLEAR (CLEAR); ASCITES FL COLOR PALE YELLOW (COLORLESS); SOURCE, BODY FLUID ASCITES
[2025-08-29 16:00] VITALS: BP 105/53; TEMP 98.6; O2SAT 94
[2025-08-29] MEDS: NS (Normal Saline) 0.9% 1,000 ML IV SCH (16:19)
[2025-08-29 19:40] VITALS: BP 118/68; TEMP 98.7; O2SAT 90
[2025-08-29 20:37] LABS: CALCIUM LEVEL 10.5 MG/DL (8.3-10.6)
[2025-08-29 21:11] LABS: HEPATITIS C VIRUS GENOTYPE 3 (.)
[2025-08-30 04:11] VITALS: BP 149/67; TEMP 98.6; O2SAT 94
[2025-08-30 07:22] LABS: BASO # 0.0 10^3/uL (0.0-0.2); BASO % 0.2 % (0.0-1.0); EOS # 0.0 10^3/uL (0.0-0.5); EOS % 0.2 % (0.0-3.0); LYMPH # 0.3 10^3/uL (1.5-5.0); LYMPH % 5.5 % (24.0-44.0); MONO # 0.6 10^3/uL (0.0-0.8); MONO % 9.8 % (2.0-8.0); NEUTROPHILS # 4.7 10^3/uL (1.5-8.5); NEUTROPHILS % 83.9 % (36.0-66.0); PLATELET COUNT, AUTOMATED 101 10^3/uL (150-450)
[2025-08-30 07:44] LABS: ALT/SGPT 106 U/L (7.0-40); AST/SGOT 313 U/L (<34); CALCIUM LEVEL 9.7 MG/DL (8.3-10.6); CARBON DIOXIDE LEVEL 32 MMOL/L (20-31); CHLORIDE LEVEL 101 MMOL/L (98-107); CREATININE FOR GFR 0.67 MG/DL (0.70-1.30); GLOMERULAR FILTRATION RATE > 90.0 (>42); MAGNESIUM LEVEL 1.8 MG/DL (1.8-2.4); POTASSIUM SERUM 3.9 MMOL/L (3.5-5.1); SODIUM LEVEL 139 MMOL/L (136-145)
[2025-08-30 08:00] VITALS: BP 118/82; TEMP 98.1; O2SAT 94
[2025-08-30] MEDS: PANTOPRAZOLE 40MG TAB PO SCH (10:06)
[2025-08-30 12:00] VITALS: BP 142/86; TEMP 98.3; O2SAT 70
[2025-08-30] MEDS: ZOLEDRONIC ACID 4 MG in IV 1 EA IV ONE (12:56)
[2025-08-30 19:45] VITALS: BP 106/65; TEMP 99.5; O2SAT 95
[2025-08-30 19:46] LABS: CALCIUM LEVEL 9.3 MG/DL (8.3-10.6)
[2025-08-30 19:49] VITALS: TEMP 98.3
[2025-08-30] MEDS: traZODone 50 MG TAB PO PRN (20:27)
[2025-08-31 03:46] VITALS: BP 129/73; TEMP 98.4; O2SAT 90
[2025-08-31 06:37] LABS: BASO # 0.0 10^3/uL (0.0-0.2); BASO % 0.1 % (0.0-1.0); EOS # 0.0 10^3/uL (0.0-0.5); EOS % 0.1 % (0.0-3.0); LYMPH # 0.4 10^3/uL (1.5-5.0); LYMPH % 5.1 % (24.0-44.0); MONO # 0.7 10^3/uL (0.0-0.8); MONO % 10.1 % (2.0-8.0); NEUTROPHILS # 5.9 10^3/uL (1.5-8.5); NEUTROPHILS % 84.2 % (36.0-66.0); PLATELET COUNT, AUTOMATED 123 10^3/uL (150-450)
[2025-08-31 07:13] LABS: C REACTIVE PROTEIN QUANTITATIV 2.85 MG/DL (<1.0)
[2025-08-31 07:14] LABS: ALT/SGPT 141 U/L (7.0-40); AST/SGOT 395 U/L (<34); CALCIUM LEVEL 9.8 MG/DL (8.3-10.6); CARBON DIOXIDE LEVEL 30 MMOL/L (20-31); CHLORIDE LEVEL 98 MMOL/L (98-107); CREATININE FOR GFR 0.70 MG/DL (0.70-1.30); GLOMERULAR FILTRATION RATE > 90.0 (>42); MAGNESIUM LEVEL 1.6 MG/DL (1.8-2.4); POTASSIUM SERUM 4.2 MMOL/L (3.5-5.1); SODIUM LEVEL 138 MMOL/L (136-145)
[2025-08-31] MEDS: MAG SULF 1GM/100ML (MAG RUN) 1 GM in IV 1 EA IV SCH (08:53)
[2025-08-31] MEDS ORDERED: GI COCKTAIL 50 ML BTL(HYOSCYAMINE/MAALOX/LIDOCAINE VISCOUS)(1:3:1) PO ONE (09:40)
[2025-08-31] MEDS ORDERED: MIRALAX *UNIT DOSE* 17 GM PACKET PO PRN (10:05)
[2025-08-31] MEDS ORDERED: SENNA 8.6 MG TAB PO PRN (10:05)
[2025-08-31] MEDS: LACTULOSE 20 GM/30 ML SYRUP UDC PO ONE (10:09)
[2025-08-31 12:00] VITALS: BP 135/68; TEMP 98.4; O2SAT 89
[2025-08-31] MEDS: LACTULOSE 20 GM/30 ML SYRUP UDC PO SCH (16:41)
[2025-08-31 18:43] LABS: CALCIUM LEVEL 9.7 MG/DL (8.3-10.6)
[2025-08-31 20:07] VITALS: BP 105/62; TEMP 98.1; O2SAT 95
[2025-08-31] MEDS: ONDANSETRON 4MG/2ML VIAL IV PRN (23:23)
[2025-09-01 04:12] VITALS: BP 131/71; TEMP 98.7; O2SAT 92
[2025-09-01 06:19] LABS: CALCIUM LEVEL 9.3 MG/DL (8.3-10.6)
[2025-09-01 07:40] LABS: BASO # 0.0 10^3/uL (0.0-0.2); BASO % 0.1 % (0.0-1.0); EOS # 0.0 10^3/uL (0.0-0.5); EOS % 0.1 % (0.0-3.0); LYMPH # 0.3 10^3/uL (1.5-5.0); LYMPH % 3.7 % (24.0-44.0); MONO # 0.8 10^3/uL (0.0-0.8); MONO % 9.5 % (2.0-8.0); NEUTROPHILS # 7.5 10^3/uL (1.5-8.5); NEUTROPHILS % 86.1 % (36.0-66.0); PLATELET COUNT, AUTOMATED 141 10^3/uL (150-450)
[2025-09-01 08:13] LABS: ALT/SGPT 163 U/L (7.0-40); AST/SGOT 446 U/L (<34); CALCIUM LEVEL 9.4 MG/DL (8.3-10.6); CARBON DIOXIDE LEVEL 31 MMOL/L (20-31); CHLORIDE LEVEL 97 MMOL/L (98-107); CREATININE FOR GFR 0.76 MG/DL (0.70-1.30); GLOMERULAR FILTRATION RATE > 90.0 (>42); MAGNESIUM LEVEL 1.8 MG/DL (1.8-2.4); POTASSIUM SERUM 4.5 MMOL/L (3.5-5.1); SODIUM LEVEL 137 MMOL/L (136-145)
[2025-09-01 12:00] VITALS: BP 120/66; TEMP 98.6; O2SAT 93
[2025-09-01 18:26] LABS: CALCIUM LEVEL 9.1 MG/DL (8.3-10.6)
[2025-09-01 20:41] VITALS: BP 107/65; TEMP 98.6; O2SAT 94
[2025-09-02] VITALS (13 sets, daily range): BP systolic 88–119; BP diastolic 51–69; TEMP 97.4–98.4; O2SAT 89–95
[2025-09-02] MEDS: NADOLOL 20MG TABLET PO SCH (01:54)
[2025-09-02] MEDS: ENOXAPARIN 40 MG/0.4 ML SYRINGE (J1650 PER 10MG) SC SCH (09:00)
[2025-09-02] MEDS ORDERED: PILL CUTTER 1 EACH XX ONE (09:02)
[2025-09-02 12:41] LABS: BASO # 0.0 10^3/uL (0.0-0.2); BASO % 0.1 % (0.0-1.0); EOS # 0.0 10^3/uL (0.0-0.5); EOS % 0.1 % (0.0-3.0); LYMPH # 0.3 10^3/uL (1.5-5.0); LYMPH % 1.7 % (24.0-44.0); MONO # 1.4 10^3/uL (0.0-0.8); MONO % 7.8 % (2.0-8.0); NEUTROPHILS # 15.6 10^3/uL (1.5-8.5); NEUTROPHILS % 89.7 % (36.0-66.0); PLATELET COUNT, AUTOMATED 146 10^3/uL (150-450)
[2025-09-02 13:12] LABS: ALT/SGPT 160.0 U/L (7.0-40); AST/SGOT 465.0 U/L (<34); CALCIUM LEVEL 8.9 MG/DL (8.3-10.6); CARBON DIOXIDE LEVEL 28.0 MMOL/L (20-31); CHLORIDE LEVEL 94.0 MMOL/L (98-107); CREATININE FOR GFR 1.56 MG/DL (0.70-1.30); GLOMERULAR FILTRATION RATE 47.5 (>42); POTASSIUM SERUM 5.5 MMOL/L (3.5-5.1); SODIUM LEVEL 132.0 MMOL/L (136-145)
[2025-09-02 13:17] LABS: INR 1.72
[2025-09-02] MEDS: OCTREOTIDE ACETATE 100 MCG/ML VIAL **IV ADMINISTRATION ONLY IV ONE (14:39)
[2025-09-02] MEDS: OCTREOTIDE ACETATE 1,200 MCG in NS 238.8 ML IV SCH (14:39)
[2025-09-02] MEDS: NS (Normal Saline) 0.9% 1,000 ML IV SCH (14:39)
[2025-09-02] MEDS: PATIROMER SORBITEX CALCIUM 8.4GM POWDER PACKET PO ONE (16:18)
[2025-09-02] MEDS: PIPERACILLIN/TAZOBACTAM SOD 4.5 GM in DEXTROSE 5% (D5W) ADV/MINI-BAG 50 ML IV SCH (16:19)
[2025-09-02 16:27] LABS: APPEARANCE, URINE HAZY (CLEAR); BACTERIA, URINE AUTO NEGATIVE (NEGATIVE); BILIRUBIN, URINE AUTO NEGATIVE (NEGATIVE); BLOOD, URINE BLOOD 1+ (NEGATIVE); GLUCOSE, URINE (UA) AUTO NEGATIVE (NEGATIVE); KETONE, URINE AUTO NEGATIVE (NEGATIVE); LEUKOCYTE ESTERASE, URINE AUTO NEGATIVE (NEGATIVE); MUCUS, URINE SMALL (NEGATIVE); NITRITE, URINE AUTO NEGATIVE (NEGATIVE); PROTEIN, URINE AUTO NEGATIVE (NEGATIVE); RBC, URINE AUTO 0 /HPF (0-3); SPECIFIC GRAVITY URINE AUTO 1.016 (1.002-1.035); SQUAMOUS EPITHELIAL CELL UR AU 0 /HPF (0-6); UROBILINOGEN, URINE AUTO 2.0 mg/dL (0.0-2.0); WBC, URINE AUTO 4 /HPF (0-3)
[2025-09-02 16:50] LABS: POTASSIUM RANDOM URINE 33.0 MMOL/L
[2025-09-02 17:01] LABS: CHLORIDE,RANDOM URINE < 20 MMOL/L; SODIUM,RANDOM URINE < 10 MMOL/L
[2025-09-02] MEDS: PANTOPRAZOLE 40MG VIAL IV SCH (20:34)
[2025-09-03] VITALS (14 sets, daily range): BP systolic 89–128; BP diastolic 46–64; TEMP 96.4–97.8; O2SAT 89–97
[2025-09-03 04:25] LABS: BASO # 0.0 10^3/uL (0.0-0.2); BASO % 0.1 % (0.0-1.0); EOS # 0.0 10^3/uL (0.0-0.5); EOS % 0.0 % (0.0-3.0); LYMPH # 0.4 10^3/uL (1.5-5.0); LYMPH % 2.9 % (24.0-44.0); MONO # 1.3 10^3/uL (0.0-0.8); MONO % 9.2 % (2.0-8.0); NEUTROPHILS # 12.5 10^3/uL (1.5-8.5); NEUTROPHILS % 87.2 % (36.0-66.0); PLATELET COUNT, AUTOMATED 182 10^3/uL (150-450)
[2025-09-03 04:47] LABS: ALT/SGPT 175.0 U/L (7.0-40); AST/SGOT 550.0 U/L (<34); CALCIUM LEVEL 8.4 MG/DL (8.3-10.6); CARBON DIOXIDE LEVEL 27.0 MMOL/L (20-31); CHLORIDE LEVEL 94.0 MMOL/L (98-107); CREATININE FOR GFR 2.43 MG/DL (0.70-1.30); GLOMERULAR FILTRATION RATE 27.9 (>42); MAGNESIUM LEVEL 2.2 MG/DL (1.8-2.4); POTASSIUM SERUM 6.2 MMOL/L (3.5-5.1); SODIUM LEVEL 133.0 MMOL/L (136-145)
[2025-09-03] MEDS: ALBUTEROL SULFATE 2.5 MG/0.5 ML INH CONCENTRATE NEB SOLN NEB SCH (05:14)
[2025-09-03] MEDS: DEXTROSE 50% 50 ML SYRINGE IV STA (05:20)
[2025-09-03] MEDS: HumuLIN R (REGULAR) INSULIN (NovoLIN R) **100 U/ML** PER UNIT IV STA (05:20)
[2025-09-03] MEDS: CALCIUM GLUCONATE 1,000 MG in DEXTROSE 5% (D5W) MINI-BAG PLU 100 ML IV ONE (05:21)
[2025-09-03] MEDS: PATIROMER SORBITEX CALCIUM 8.4GM POWDER PACKET PO ONE (07:33)
[2025-09-03] MEDS: PIPERACILLIN/TAZOBACTAM SOD 3.375 GM in DEXTROSE 5% (D5W) ADV/MINI-BAG 50 ML IV SCH (10:07)
[2025-09-03 12:44] LABS: CALCIUM LEVEL 8.2 MG/DL (8.3-10.6); CARBON DIOXIDE LEVEL 22.0 MMOL/L (20-31); CHLORIDE LEVEL 96.0 MMOL/L (98-107); CREATININE FOR GFR 2.58 MG/DL (0.70-1.30); GLOMERULAR FILTRATION RATE 26.0 (>42); POTASSIUM SERUM 6.2 MMOL/L (3.5-5.1); SODIUM LEVEL 131.0 MMOL/L (136-145)
[2025-09-03] MEDS: PATIROMER SORBITEX CALCIUM 8.4GM POWDER PACKET PO SCH ×2 (12:59→18:57)
[2025-09-03] MEDS: MIDODRINE 5 MG TAB PO SCH (13:00)
[2025-09-03 18:32] LABS: CALCIUM LEVEL 7.9 MG/DL (8.3-10.6); CARBON DIOXIDE LEVEL 25.0 MMOL/L (20-31); CHLORIDE LEVEL 93.0 MMOL/L (98-107); CREATININE FOR GFR 2.7 MG/DL (0.70-1.30); GLOMERULAR FILTRATION RATE 24.6 (>42); POTASSIUM SERUM 7.0 MMOL/L (3.5-5.1); SODIUM LEVEL 127.0 MMOL/L (136-145)
[2025-09-03] MEDS: IPRATROPIUM 0.5 MG/ALBUTEROL 2.5 MG INH SOL UD 3 ML NEB PRN (19:53)
[2025-09-03] MEDS ORDERED: HYOSCYAMINE SULFATE 0.125 MG SUBL TABLET PO PRN (21:15)
[2025-09-03] MEDS ORDERED: IPRATROPIUM 0.5 MG/ALBUTEROL 2.5 MG INH SOL UD 3 ML NEB PRN (21:15)
[2025-09-03] MEDS ORDERED: ATROPINE SULFATE 1% OPHTH SOLN 2 ML BTL SL PRN (21:15)
[2025-09-03] MEDS ORDERED: FLEET ENEMA PR PRN (21:15)
[2025-09-03] MEDS ORDERED: SCOPOLAMINE 1MG TRANSDERMAL PATCH TOP PRN (21:15)
[2025-09-03] MEDS ORDERED: ACETAMINOPHEN 325 MG TAB PO PRN (21:15)
[2025-09-03] MEDS ORDERED: ONDANSETRON 4MG ORAL DISINTEGRATING TAB PO PRN (21:15)
[2025-09-03] MEDS ORDERED: LORazepam 1 MG TAB PO PRN (21:15)
[2025-09-04] MEDS: LORazepam 1 MG TAB PO SCH (15:37)
[2025-09-04] MEDS: OLANZapine ORAL DISINTEGRATING TAB 5MG PO SCH (21:20)
[2025-09-04] MEDS: MORPHINE 10 MG/0.5 ML ORAL CONCENTRATE SOLUTION U/D SL PRN (21:23)
== END 2025-09-06 18:46 | disposition expired | DRG 432 ==
LOC: M ED 15:47 → M ED INP 21:34 → M MSPAV 08-22 00:43 → OBSVTOIN 08-23 21:10 → M MSPAV 08-26 14:24 → M ICU 09-02 12:55 → M PCU 09-03 16:31 → M MS5PR 09-04 08:00
PROVIDERS: ADMIT Student in an Organized Health Care Education/Training Program; ATTEND Internal Medicine
PROC: 0W9G3ZZ Drainage of Peritoneal Cavity, Percutaneous Approach (ICD-10-PCS; 2025-08-29)
PROC: 30233J1 Transfusion of Nonautologous Serum Albumin into Peripheral Vein, Percutaneous Approach (ICD-10-PCS; principal; 2025-09-02)
DX: K74.60 Unspecified cirrhosis of liver (principal); K76.7 Hepatorenal syndrome; J18.9 Pneumonia, unspecified organism; G93.41 Metabolic encephalopathy; R18.8 Other ascites; K92.2 Gastrointestinal hemorrhage, unspecified; K76.6 Portal hypertension; N17.9 Acute kidney failure, unspecified; E87.1 Hypo-osmolality and hyponatremia; C79.9 Secondary malignant neoplasm of unspecified site; R64 Cachexia; E72.20 Disorder of urea cycle metabolism, unspecified; Z66 Do not resuscitate; Z86.73 Personal history of transient ischemic attack (TIA), and cerebral infarction without residual deficits; F41.9 Anxiety disorder, unspecified; E03.9 Hypothyroidism, unspecified; K21.9 Gastro-esophageal reflux disease without esophagitis; R74.01 Elevation of levels of liver transaminase levels; D69.6 Thrombocytopenia, unspecified; K76.82 Hepatic encephalopathy; E83.52 Hypercalcemia; E83.42 Hypomagnesemia; E83.39 Other disorders of phosphorus metabolism; M70.921 Unspecified soft tissue disorder related to use, overuse and pressure, right upper arm; B96.20 Unspecified Escherichia coli [E. coli] as the cause of diseases classified elsewhere; I89.0 Lymphedema, not elsewhere classified; E87.5 Hyperkalemia; D50.9 Iron deficiency anemia, unspecified; Z79.82 Long term (current) use of aspirin; R57.0 Cardiogenic shock; K71.3 Toxic liver disease with chronic persistent hepatitis; Z79.890 Hormone replacement therapy; Z79.899 Other long term (current) drug therapy